=== PATIENT | male | born 1955 | race Caucasian/White ===

== ENCOUNTER 2018-09-11 06:58 | Day surgery (SDC) | payer OTHER ==
[~2018-09-11] VITALS: Ht 170.2 cm; Wt 113.3 kg
[~2018-09-11 06:58] MED LIST: ALBU90OI6 INH; ALBU90OI61 INH; AMIT25 PO; AMLO5; DIAZ5 PO; DULO60 PO; DULOXETINE HCL40 MG; ETOD400 PO; FLUSAL2505 INH; FOLI1 PO; GABA300 PO; HYDACE10B PO; HYDCHL25 PO; LISI20 PO; LISI5; LOVA40 PO; MEDICAL MARIJUANA; METF500C; Metformin HCl1000 MG PO; NAPR500 PO; Norco 5-325 Ta1 EACH PO; OMEP20ER PO; Omeprazole20 M1 PO; PRAM.125 PO; PRAM.5 PO; PROM25 PO; RANI150 PO; ROSUVASTATIN CA20 MG PO; SPIRIVA RESPIMAT4 G1; SPIRIVA RESPIMAT4 G1 INH; TAMS.4ER; TAMS.4ER PO; TRAM50 PO; TRAZ50
== END 2018-09-11 09:04 | disposition home or self-care (01) ==
LOC: ORSCSDS 06:58
PROVIDERS: Surgery
PROC: 0DBP8ZX Excision of Rectum, Via Natural or Artificial Opening Endoscopic, Diagnostic (ICD-10-PCS; principal; 2018-09-11 08:15)
PROC: 0DBL8ZX Excision of Transverse Colon, Via Natural or Artificial Opening Endoscopic, Diagnostic (ICD-10-PCS; principal; 2018-09-11 08:15)
PROC: 0DBK8ZX Excision of Ascending Colon, Via Natural or Artificial Opening Endoscopic, Diagnostic (ICD-10-PCS; principal; 2018-09-11 08:15)
DX: Z12.11 Encounter for screening for malignant neoplasm of colon (principal); D12.2 Benign neoplasm of ascending colon; D12.3 Benign neoplasm of transverse colon; K62.1 Rectal polyp; Z86.010 Personal history of colon polyps; J44.9 Chronic obstructive pulmonary disease, unspecified; G47.33 Obstructive sleep apnea (adult) (pediatric); F41.8 Other specified anxiety disorders; E11.9 Type 2 diabetes mellitus without complications; I10 Essential (primary) hypertension; F17.210 Nicotine dependence, cigarettes, uncomplicated; Z79.84 Long term (current) use of oral hypoglycemic drugs; Z79.899 Other long term (current) drug therapy
CPT/HCPCS: 82947; 88305; J0330; J1980; J2405; J7120

== ENCOUNTER → 2018-10-01 | Outpatient (CLI) | payer OTHER | END | disposition home or self-care (01) | LOC: LAB EV 12:57 → LAB SHORT 12:57 | DX: L03.317 Cellulitis of buttock (principal) | CPT/HCPCS: 87070; 87075; 87205 ==

== ENCOUNTER 2019-05-05 21:19 | Emergency (ER) | payer OTHER ==
[~2019-05-05] VITALS: Ht 170.2 cm; Wt 117.0 kg
[2019-05-05 22:01] LABS: BASOPHILS ABSOLUTE AUTO 0.02 K/mm3 (0.00-0.23); BASOPHILS PERCENT AUTO 0 % (0-2); EOSINOPHILS ABSOLUTE AUTO 0.96 K/mm3 (0.00-0.68); EOSINOPHILS PERCENT AUTO 8 % (0-6); Hematocrit 42.2 % (37.0-53.0); Hemoglobin 14.2 g/dL (13.5-17.5); IMMATURE GRAN ABSOLUTE AUTO 0.03 K/mm3 (0.00-0.10); IMMATURE GRAN PERCENT AUTO 0 % (0-1); LYMPHOCYTES ABSOLUTE AUTO 3.11 K/mm3 (0.84-5.20); LYMPHOCYTES PERCENT AUTO 27 % (21-46); MONOCYTES ABSOLUTE AUTO 1.38 K/mm3 (0.16-1.47); MONOCYTES PERCENT AUTO 12 % (4-13); Mean Corpuscular HGB 32.5 pg (26.0-34.0); Mean Corpuscular HGB Conc 33.6 g/dL (31.5-36.5); Mean Corpuscular Volume 97 fL (80-100); NEUTROPHILS ABSOLUTE AUTO 6.13 K/mm3 (1.96-9.15); NEUTROPHILS PERCENT AUTO 53 % (41-73); Platelet Count 319 K/mm3 (150-400); RDW Coefficient Variation 14.1 % (11.7-14.2); RDW Standard Deviation 49.4 fL (35.1-46.3); Red Blood Cell Count 4.37 M/mm3 (4.30-5.90); White Blood Cell Count 11.63 K/mm3 (4.00-11.30)
[2019-05-05 22:23] LABS: Alanine Aminotransfer (ALT/SGP 31 U/L (12-78); Albumin, Blood 3.6 g/dL (3.4-5.0); Alk Phos 87 U/L (50-136); Anion Gap 4 mmol/L (6-16); Aspartate Aminotrans (AST/SGOT 16 U/L (12-37); Bilirubin, Total 0.5 mg/dL (0.1-1.0); Blood Urea Nitrogen 15 mg/dL (8-24); CO2, Blood 31 mmol/L (21-32); Calcium, Blood 8.9 mg/dL (8.5-10.1); Chloride, Blood 103 mmol/L (98-108); Creatinine, Blood 0.88 mg/dL (0.60-1.20); Globulin, Blood 3.5 g/dL (2.2-4.0); Glomerular Filtration Rate >60 (60-); Glucose, Blood 183 mg/dL (70-99); Sodium, Blood 138 mmol/L (136-145); Total Protein, Blood 7.1 g/dL (6.4-8.2); Troponin I <0.015 ng/mL (0.000-0.040)
[2019-05-06 00:17] LABS: Influenza A Negative (NEGATIVE); Influenza B Negative (NEGATIVE)
[2019-05-06] MEDS ORDERED: Prednisone20 MG PO (00:37)
== END 2019-05-06 01:00 | disposition home or self-care (01) ==
LOC: ER 21:19
PROVIDERS: Emergency Medicine
DX: J44.9 Chronic obstructive pulmonary disease, unspecified (principal); F17.200 Nicotine dependence, unspecified, uncomplicated; Z79.899 Other long term (current) drug therapy; Z79.84 Long term (current) use of oral hypoglycemic drugs; G47.33 Obstructive sleep apnea (adult) (pediatric); R09.02 Hypoxemia; F17.210 Nicotine dependence, cigarettes, uncomplicated
CPT/HCPCS: 36415; 36600; 71046; 80053; 82803; 83605; 84484; 85025; 87040; 87804; 93005; 93010; 94640; 94644; 94726; 94729; 96374; 99284-25; J2930

== ENCOUNTER → 2020-05-25 | Outpatient (CLI) | payer OTHER ==
[~2020-05-25] MED LIST changes: +Prednisone20 MG PO
[2020-05-25 09:26] LABS: BASOPHILS ABSOLUTE AUTO 0.03 K/mm3 (0.00-0.23); BASOPHILS PERCENT AUTO 0 % (0-2); EOSINOPHILS ABSOLUTE AUTO 0.33 K/mm3 (0.00-0.68); EOSINOPHILS PERCENT AUTO 3 % (0-6); Hematocrit 34.8 % (37.0-53.0); Hemoglobin 11.7 g/dL (13.5-17.5); IMMATURE GRAN ABSOLUTE AUTO 0.04 K/mm3 (0.00-0.10); IMMATURE GRAN PERCENT AUTO 0 % (0-1); LYMPHOCYTES ABSOLUTE AUTO 2.05 K/mm3 (0.84-5.20); LYMPHOCYTES PERCENT AUTO 16 % (21-46); MONOCYTES ABSOLUTE AUTO 1.18 K/mm3 (0.16-1.47); MONOCYTES PERCENT AUTO 9 % (4-13); Mean Corpuscular HGB 31.6 pg (26.0-34.0); Mean Corpuscular HGB Conc 33.6 g/dL (31.5-36.5); Mean Corpuscular Volume 94 fL (80-100); Mean Platelet Volume 8.4 fL (9.1-12.4); NEUTROPHILS ABSOLUTE AUTO 9.08 K/mm3 (1.96-9.15); NEUTROPHILS PERCENT AUTO 72 % (41-73); Platelet Count 435 K/mm3 (150-400); RDW Coefficient Variation 16.4 % (11.7-14.2); RDW Standard Deviation 56.7 fL (35.1-46.3); White Blood Cell Count 12.71 K/mm3 (4.00-11.30)
[2020-05-25 09:38] LABS: Alanine Aminotransfer (ALT/SGP 25 U/L (12-78); Albumin, Blood 3.5 g/dL (3.4-5.0); Albumin/Globulin Ratio 0.8 (0.8-1.8); Alk Phos 83 U/L (40-126); Anion Gap 6 mmol/L (6-16); Aspartate Aminotrans (AST/SGOT 13 U/L (12-37); Bilirubin, Total 0.6 mg/dL (0.1-1.0); Blood Urea Nitrogen 23 mg/dL (8-24); Bun/Creatinine Ratio 20.9 (12.0-20.0); CO2, Blood 31 mmol/L (21-32); Calcium, Blood 9.6 mg/dL (8.5-10.1); Chloride, Blood 93 mmol/L (98-108); Globulin, Blood 4.3 g/dL (2.2-4.0); Glomerular Filtration Rate >60 (60-); Glucose, Blood 248 mg/dL (70-99); Potassium, Blood 4.8 mmol/L (3.5-5.5); Sodium, Blood 130 mmol/L (136-145); Total Protein, Blood 7.8 g/dL (6.4-8.2)
== END | disposition home or self-care (01) ==
LOC: LAB SHORT 09:22 → LAB EV 09:22
PROVIDERS: Chiropractor
DX: R60.0 Localized edema (principal)
CPT/HCPCS: 80053; 83036; 83880; 85025

== ENCOUNTER 2021-01-09 10:51 | Day surgery (SDC) | payer MEDICARE, OTHER ==
[~2021-01-09] VITALS: Ht 170.2 cm; Wt 115.5 kg
--- NOTE | 2021-01-09 13:03 | NUR ---
01/09/21 1303 Claudette Kerr LATE ENTRY: UPON ARRIVAL TO SDU PT PRESENTS WITH O2 SAT 84% ON RA. HE IS PLACED ON O2 2L VIA NC AND SATS INCREASE TO 88% HE IS GIVEN BREATHING TX ORDERED AND DR MURILLO IS NOTIFIED. DR MURILLO ARRIVES AND NO NEW ORDERS ARE GIVE. PT POST BREATHING TX LUNGS ARE CLEAR TO COUGH AND O2 SAT IS 92-94 ON RA. PT IS GIVEN AND INSENTIVE SPIROMETRY TO USE AND PREFORMS WELL. HE IS ENCOURAGED TO COUGH AND DEEP BREATH WELL.
== END 2021-01-09 13:14 | disposition home or self-care (01) ==
LOC: ORSCSDS 10:51
PROVIDERS: Internal Medicine Gastroenterology
PROC: 0DB58ZX Excision of Esophagus, Via Natural or Artificial Opening Endoscopic, Diagnostic (ICD-10-PCS; principal; 2021-01-09 12:30)
PROC: 0DB98ZX Excision of Duodenum, Via Natural or Artificial Opening Endoscopic, Diagnostic (ICD-10-PCS; principal; 2021-01-09 12:30)
DX: K22.70 Barrett's esophagus without dysplasia (principal); E11.9 Type 2 diabetes mellitus without complications; J44.9 Chronic obstructive pulmonary disease, unspecified; G47.30 Sleep apnea, unspecified; I10 Essential (primary) hypertension; K21.9 Gastro-esophageal reflux disease without esophagitis; Z87.891 Personal history of nicotine dependence; E66.9 Obesity, unspecified; Z68.41 Body mass index [BMI] 40.0-44.9, adult; Z79.84 Long term (current) use of oral hypoglycemic drugs; Z79.899 Other long term (current) drug therapy
CPT/HCPCS: 82947; 88305; J2704; J7120

== ENCOUNTER 2021-10-23 09:30 | Day surgery (SDC) | payer OTHER ==
[~2021-10-23] VITALS: Ht 170.2 cm; Wt 113.0 kg
[~2021-10-23 09:30] MED LIST changes: +ACET500 PO; +DICL75ER PO; +FURO20 PO; +JARDIANCE10 MG PO; +TERB250 PO; +TRELEGY ELLIPT1 EACH INH
[2021-10-23] MEDS ORDERED: AMOCLA875 PO (11:29)
[2021-10-23] MEDS ORDERED: Diflucan100 MG PO (11:30)
--- NOTE | 2021-10-23 12:05 | NUR ---
TOOK OVER PATIENT CARE AFTER REPORT WAS RECEIVED.
--- NOTE | 2021-10-23 13:09 | NUR ---
DR. HILL INTO TALK WITH PATIENT. INFORMED DR. HILL THAT PT WAS RECENTLY PLACED ON ANTIBIOTICS AND ANTIFUGAL 4 DAYS AGO. FREDY HILL EVALUTED PT AND INSTRUCTED PT THAT HE SURGERY NEEDED TO BE CANCELLED AND HIS INFECTION NEEDED TO BE RESOLVED FOR AT LEAST A FEW WEEKS BEFORE HIS SURGERY. PT IV DC'D INTACT AND PT TAKEN OUT OF DEPARTMENT VIA WC, HOME WITH HIS .
== END 2021-10-24 22:53 | disposition home or self-care (01) ==
LOC: ORSCMMR 09:30 → ORD 14:00 → ORSCMMR 10-24 22:53
DX: M17.12 Unilateral primary osteoarthritis, left knee (principal); Z53.9 Procedure and treatment not carried out, unspecified reason
CPT/HCPCS: 82947; A9270; J0171; J0690; J0735; J1885; J2250; J2704; J2795; J3010; J7120

== ENCOUNTER 2021-11-21 09:19 | Day surgery (SDC) | payer OTHER ==
[~2021-11-21] VITALS: Ht 170.2 cm; Wt 118.1 kg
[~2021-11-21 09:19] MED LIST changes: +AMOCLA875 PO; +Diflucan100 MG PO
[2021-11-21] MEDS ORDERED: Lovastatin20 MG PO (10:01)
--- NOTE | 2021-11-21 10:05 | NUR ---
11/21/21 Goldie5 Jamin Melendez CALL LIGHT WITHIN REACH
== END 2021-11-21 11:23 | disposition home or self-care (01) ==
LOC: ORSCSDS 09:19
PROVIDERS: Surgery
PROC: 0DBK8ZX Excision of Ascending Colon, Via Natural or Artificial Opening Endoscopic, Diagnostic (ICD-10-PCS; principal; 2021-11-21 10:30)
DX: Z12.11 Encounter for screening for malignant neoplasm of colon (principal); Z86.010 Personal history of colon polyps; D12.2 Benign neoplasm of ascending colon; I10 Essential (primary) hypertension; G47.33 Obstructive sleep apnea (adult) (pediatric); E11.9 Type 2 diabetes mellitus without complications; E78.5 Hyperlipidemia, unspecified; K21.9 Gastro-esophageal reflux disease without esophagitis; J44.9 Chronic obstructive pulmonary disease, unspecified; E66.01 Morbid (severe) obesity due to excess calories; Z68.41 Body mass index [BMI] 40.0-44.9, adult; Z79.84 Long term (current) use of oral hypoglycemic drugs; Z79.899 Other long term (current) drug therapy
CPT/HCPCS: 82947; 88305; J2704; J7120

== ENCOUNTER 2022-07-18 18:36 | Inpatient (IN) | payer OTHER ==
[~2022-07-18] VITALS: Ht 170.2 cm; Wt 112.0 kg
[~2022-07-18 18:36] MED LIST changes: +Lovastatin20 MG PO
[2022-07-18 19:04] LABS: BASOPHILS ABSOLUTE AUTO 0.04 K/mm3 (0.00-0.23); BASOPHILS PERCENT AUTO 0 % (0-2); EOSINOPHILS ABSOLUTE AUTO 0.22 K/mm3 (0.00-0.68); EOSINOPHILS PERCENT AUTO 1 % (0-6); Hematocrit 38.1 % (37.0-53.0); Hemoglobin 12.9 g/dL (13.5-17.5); IMMATURE GRAN ABSOLUTE AUTO 0.11 K/mm3 (0.00-0.10); IMMATURE GRAN PERCENT AUTO 1 % (0-1); LYMPHOCYTES ABSOLUTE AUTO 1.78 K/mm3 (0.84-5.20); LYMPHOCYTES PERCENT AUTO 9 % (21-46); MONOCYTES ABSOLUTE AUTO 1.79 K/mm3 (0.16-1.47); MONOCYTES PERCENT AUTO 9 % (4-13); Mean Corpuscular HGB 31.1 pg (26.0-34.0); Mean Corpuscular HGB Conc 33.9 g/dL (31.5-36.5); Mean Corpuscular Volume 92 fL (80-100); Mean Platelet Volume 8.8 fL (9.1-12.4); NEUTROPHILS ABSOLUTE AUTO 16.72 K/mm3 (1.96-9.15); NEUTROPHILS PERCENT AUTO 81 % (41-73); Platelet Count 312 K/mm3 (150-400); RDW Standard Deviation 50.3 fL (35.1-46.3); Red Blood Cell Count 4.15 M/mm3 (4.30-5.90); White Blood Cell Count 20.66 K/mm3 (4.00-11.30)
[2022-07-18 19:29] LABS: Albumin, Blood 2.6 g/dL (3.4-5.0); Albumin/Globulin Ratio 0.6 (0.8-1.8); Bilirubin, Total 0.6 mg/dL (0.1-1.0); Bun/Creatinine Ratio 13.4 (12.0-20.0); Calcium, Blood 8.2 mg/dL (8.5-10.1); Creatinine, Blood 0.6 mg/dL (0.60-1.20); Globulin, Blood 4.1 g/dL (2.2-4.0); Potassium, Blood 4.9 mmol/L (3.5-5.5); Thyroid Stimulating Hormone 0.702 uIU/mL (0.360-4.800); Total Protein, Blood 6.7 g/dL (6.4-8.2)
[2022-07-18 19:33] LABS: Base Excess Venous 8.3 mmol/L; Bicarbonate Venous 31.4 mmol/L (24.0-30.0); PCO2 Venous 40.5 mmHg (38-42)
[2022-07-18 19:50] LABS: Influenza A, PCR NEGATIVE (NEGATIVE); Influenza B, PCR NEGATIVE (NEGATIVE); Resp Syncytial Virus, PCR NEGATIVE (NEGATIVE); SARS-Cov-2 (COVID-19) PCR, MMC NEGATIVE (NEGATIVE)
[2022-07-18 21:27] LABS: Source, Urine Clean Catch
[2022-07-18 21:40] LABS: Appearance, Urine Clear (Clear); Bilirubin, Urine Neg (Neg); Blood, Urine Neg (Neg); Color, Urine Yellow (P-Yellow); Glucose Qualitative, Urine 4+ (Neg); Ketones, Urine Neg (Neg); Leukocyte Esterase, Urine 1+ (Neg); Nitrite, Urine Neg (Neg); Protein, Urine 1+ (Neg); Specific Gravity, Urine 1.015 (1.003-1.022); Urobilinogen, Urine NORM (Normal)
[2022-07-18 21:53] LABS: Bacteria Mod /hpf; Red Blood Cells, Urine 0-2 /hpf (0-2); Squamous Epithelial Cells Mod /hpf (Few)
[2022-07-19 00:05] LABS: Anti-Xa UFH, PHA Monitoring <0.10 IU/mL; International Normalized Ratio 1.07; Prothrombin Time Results 11.2 Sec (9.7-11.5)
--- NOTE | 2022-07-19 04:49 | NUR ---
SHIFT SUMMARY PT ADMITTED AT 0035 FROM ED- PT A&O X 4- STARTED IV RIGHT FA- STARTED HEPARIN DRIP PER ORDER- PT ON 3L VIA NC SKIN CHECK REVEALED MULTIPLE BOILS IN SCROTUM AREA THAT APPEARED INFECTED/INFLAMMED- PER PT HE DIDN'T REMEMBER IN ED TO LET THEM KNOW THAT HE HAS AN APPOINTMENT WITH TODAY FOR TREATMENT- PT REPORTS HAVING A HISTORY OF BOILS- PT USED CALL LIGHT APPROPRIATELY T/O NIGHT- PT SAT UP AND ATE A SNACK WITHOUT C/O NAUSEA- BED LOW POSITION, CALL LIGHT WITHIN REACH, BED ALARM IN PLACE
[2022-07-19] MEDS ORDERED: JARDIANCE10 MG PO (07:00)
[2022-07-19] MEDS ORDERED: Trelegy Ellipta 100- INH (07:01)
[2022-07-19] MEDS ORDERED: METFORMIN HCL500 M3 PO (07:03)
[2022-07-19] MEDS ORDERED: KLOR-CON 1010 ME1 PO (07:04)
[2022-07-19] MEDS ORDERED: ROSU10TA PO (07:05)
[2022-07-19] MEDS ORDERED: RYBELSUS14 MG PO (07:07)
[2022-07-19] MEDS ORDERED: Viagra100 MG PO (07:08)
[2022-07-19 07:16] LABS: BASOPHILS ABSOLUTE AUTO 0.03 K/mm3 (0.00-0.23); BASOPHILS PERCENT AUTO 0 % (0-2); EOSINOPHILS PERCENT AUTO 2 % (0-6); Hematocrit 37.8 % (37.0-53.0); Hemoglobin 12.3 g/dL (13.5-17.5); IMMATURE GRAN PERCENT AUTO 1 % (0-1); LYMPHOCYTES ABSOLUTE AUTO 1.75 K/mm3 (0.84-5.20); LYMPHOCYTES PERCENT AUTO 10 % (21-46); MONOCYTES ABSOLUTE AUTO 1.39 K/mm3 (0.16-1.47); MONOCYTES PERCENT AUTO 8 % (4-13); Mean Corpuscular HGB 30.9 pg (26.0-34.0); Mean Corpuscular HGB Conc 32.5 g/dL (31.5-36.5); Mean Corpuscular Volume 95 fL (80-100); Mean Platelet Volume 8.9 fL (9.1-12.4); NEUTROPHILS ABSOLUTE AUTO 13.27 K/mm3 (1.96-9.15); NEUTROPHILS PERCENT AUTO 78 % (41-73); Platelet Count 314 K/mm3 (150-400); RDW Coefficient Variation 15.7 % (11.7-14.2); RDW Standard Deviation 54.7 fL (35.1-46.3); Red Blood Cell Count 3.98 M/mm3 (4.30-5.90); White Blood Cell Count 16.94 K/mm3 (4.00-11.30)
[2022-07-19 07:45] LABS: Albumin, Blood 2.6 g/dL (3.4-5.0); Albumin/Globulin Ratio 0.6 (0.8-1.8); Bilirubin, Total 0.8 mg/dL (0.1-1.0); Calcium, Blood 8.2 mg/dL (8.5-10.1); Creatinine, Blood 0.71 mg/dL (0.60-1.20); Globulin, Blood 4.2 g/dL (2.2-4.0); Potassium, Blood 4.5 mmol/L (3.5-5.5); Total Protein, Blood 6.8 g/dL (6.4-8.2)
--- NOTE | 2022-07-19 08:00 | NUR ---
pt laying in bed this am, a/ox3, a bit impulsive, will get himself to the bathroom without being cognisant of his lines, is coopertive with care, is directable, lungs are dim, course t/o, on 3 liters currently, has a wet productive cough of yellow sputum, hrr, currently in sr per monitor, see strip, 4+ edema noted to b/l le, cap refill <3sec, vs stable, afebrile, iv x2 to r and l fa's, heperin gtt infusing as ordered, voids clear marco a urine via urinal, skin has an abcess to perineal area that has a white spot that has some drainage, reports that he is constipated, gena calabrese, call light in reach.
--- NOTE | 2022-07-19 18:00 | NUR ---
pt has been diaphoretic throughout the day, low grade temp, v.s. stable, good appetite, has slept when left undisturbed, surgical consult was called in by Dr. Boo for ct results, will keep him npo at this point, did already eat dinner. no further changes, call light in reach.
--- NOTE | 2022-07-20 03:59 | NUR ---
SHIFT SUMMARY NO OVERNIGHT EVENTS IN PT CONDITION. PT NPO FOR POSSIBLE SURGERY TODAY, PT WAITING FOR SURGEON TO DISCUSS OPTIONS WITH HIM. HEPARIN GTT DISCONTINUED. CONTINUES IV ABX FOR SCROTUM WOUND/ULCER THAT IS OPEN TO AIR. BLE SWOLLEN, +3 EDEMA. ON TELE RUNNING NSR/TACH HR 95-110 WITH TRIGEMENY.PT ORIENTED X3/4, FORGETFUL, BED ALARM ON. REMAINS ON 3LO2, HAS NONPRODUCTIVE COUGH. FREQUENT ROUNDING TO ASSIST WITH PT NEEDS.
[2022-07-20 06:31] LABS: BASOPHILS ABSOLUTE AUTO 0.03 K/mm3 (0.00-0.23); BASOPHILS PERCENT AUTO 0 % (0-2); EOSINOPHILS PERCENT AUTO 3 % (0-6); Hematocrit 34.7 % (37.0-53.0); Hemoglobin 11.5 g/dL (13.5-17.5); IMMATURE GRAN ABSOLUTE AUTO 0.06 K/mm3 (0.00-0.10); IMMATURE GRAN PERCENT AUTO 0 % (0-1); LYMPHOCYTES ABSOLUTE AUTO 1.45 K/mm3 (0.84-5.20); LYMPHOCYTES PERCENT AUTO 10 % (21-46); MONOCYTES ABSOLUTE AUTO 1.23 K/mm3 (0.16-1.47); MONOCYTES PERCENT AUTO 9 % (4-13); Mean Corpuscular HGB 30.8 pg (26.0-34.0); Mean Corpuscular HGB Conc 33.1 g/dL (31.5-36.5); Mean Corpuscular Volume 93 fL (80-100); Mean Platelet Volume 8.5 fL (9.1-12.4); NEUTROPHILS ABSOLUTE AUTO 10.83 K/mm3 (1.96-9.15); NEUTROPHILS PERCENT AUTO 77 % (41-73); Platelet Count 320 K/mm3 (150-400); RDW Coefficient Variation 15.3 % (11.7-14.2); RDW Standard Deviation 52.3 fL (35.1-46.3); Red Blood Cell Count 3.73 M/mm3 (4.30-5.90)
[2022-07-20 07:43] LABS: Albumin, Blood 2.4 g/dL (3.4-5.0); Albumin/Globulin Ratio 0.6 (0.8-1.8); Bilirubin, Total 0.7 mg/dL (0.1-1.0); Bun/Creatinine Ratio 17.9 (12.0-20.0); C-REACTIVE PROTEIN, EXT RANGE 16.3 mg/dL (0.000-0.300); Calcium, Blood 8.3 mg/dL (8.5-10.1); Creatinine, Blood 0.61 mg/dL (0.60-1.20); Potassium, Blood 3.9 mmol/L (3.5-5.5); Total Protein, Blood 6.4 g/dL (6.4-8.2)
--- NOTE | 2022-07-20 14:10 | NUR ---
ASSUMED CARE PT IS ALERT NRB ON AT 10 L I REMOVED IT AND PUT 3 L N/C AFTER PT HAD GOOD COUGH . AFTERA COUPLE MINUTES BIOX DROPS TO 90% SO I PUT NRB AT 10 L O2 BACK ON PT DENIES PAIN OR NAUSEA GOOD COUGH WHEN ASKED IT IS MOIST COUNDING NONPRODUCTIVE
[2022-07-20] MEDS ORDERED: FURO80 (18:14)
[2022-07-20] MEDS ORDERED: SULTRIDS PO (18:14)
--- NOTE | 2022-07-20 19:44 | NUR ---
PT AWAKE AT START OF SHIFT. NPO AFTER MN, WAITING FOR SX. DR BELL IN TO SEE PT AND DISCUSS PLAN OF CARE. PT AGREEABLE AT THE TIME. DR HERNANDEZ NOTIFIED FOR APPROX TIME AND REPORTED 1300. DAY SX HERE TO P/U PT AND DISCUSS PROCEDURE. IV ABX INFUSING PT LEFT D/T PT OCCLUDING IV SITE FREQUENTLY AND DELAYING ABX SCHEDULE. PT LATER RETURNED TO , TOLERATING PROCEDURE WELL. VSS; SEE CHART. PT LATER THIS EVENING BECAME VERY AGITATED AND UPSET, TEARING OFF TELE MX AND YELLING AT [employer] SAL[employer] REPRESENTATIVE BECAUSE HE WASN'T D/C'D. PT WANTING TO GO AMA AND STATED THAT HE WASN'T STAYING ANY LONGER. DR BELL NOTIFIED AND UPDATED ON PT STATUS. NEW ORDERS PLACED. DR BELL PLACING D/C ORDERS AGAINST MEDICAL ADVICE IN ORDER FOR PT TO HAVE OUTPT ABX. PT WILLING TO WAIT FOR D/C ORDERS AND FOR MEDS TO BE FAXED TO PHARMACY. STAT HOME O2 EVAL ORDERED AND DONE. PT UNWILLING TO WAIT FOR HOME O2 ORDER. D/C ORDERS AND INSTRUCTIONS REVIEWED WITH PT; VERBALIZED UNDERSTANDING. PT'S SON HERE TO TICKET BROKER PT. BELONGINGS AND INSTRUCTIONS WENT WITH PT.
== END 2022-07-20 18:57 | disposition left against medical advice (07) | DRG 871 ==
LOC: ER 18:36 → MEDS 23:53
PROVIDERS: Emergency Medicine; Family Medicine; ADMIT Internal Medicine
PROC: 5A2204Z Restoration of Cardiac Rhythm, Single (ICD-10-PCS; principal; 2022-07-18)
PROC: 3E03329 Introduction of Other Anti-infective into Peripheral Vein, Percutaneous Approach (ICD-10-PCS; 2022-07-18)
PROC: 0HB9XZZ Excision of Perineum Skin, External Approach (ICD-10-PCS; 2022-07-20)
DX: A41.4 Sepsis due to anaerobes (principal); I50.23 Acute on chronic systolic (congestive) heart failure; J96.01 Acute respiratory failure with hypoxia; K61.0 Anal abscess; E87.1 Hypo-osmolality and hyponatremia; I48.91 Unspecified atrial fibrillation; E11.628 Type 2 diabetes mellitus with other skin complications; I11.0 Hypertensive heart disease with heart failure; I44.30 Unspecified atrioventricular block; E11.51 Type 2 diabetes mellitus with diabetic peripheral angiopathy without gangrene; J43.9 Emphysema, unspecified; F32.A Depression, unspecified; F41.9 Anxiety disorder, unspecified; G47.30 Sleep apnea, unspecified; Z96.0 Presence of urogenital implants; Z20.822 Contact with and (suspected) exposure to COVID-19; F12.10 Cannabis abuse, uncomplicated; Z88.8 Allergy status to other drugs, medicaments and biological substances; Z79.899 Other long term (current) drug therapy; Z98.890 Other specified postprocedural states; Z79.01 Long term (current) use of anticoagulants; Z98.1 Arthrodesis status; Z87.891 Personal history of nicotine dependence; Z79.811 Long term (current) use of aromatase inhibitors; Z79.84 Long term (current) use of oral hypoglycemic drugs; Z79.52 Long term (current) use of systemic steroids
CPT/HCPCS: 0241U; 36415; 71045; 72193; 76882; 80053; 81001; 82803; 82947; 83036; 83605; 83880; 84443; 84484; 85025; 85520; 85610; 85730; 86140; 87040; 87070; 87075; 87076; 87185; 87205; 92960; 93005; 93010; 93306; 94640; 94664; 94760; 94761; 96365-59; 96366-59; 96367-59; 96375-59; 96376-59; 99291-25; A9270; J0696; J1100; J1644; J1815; J2250; J2405; J2704; J2795; J3010; J3370; J7030; J7050; J7120; Q9967

== ENCOUNTER → 2023-06-25 | Outpatient (CLI) | payer OTHER ==
[~2023-06-25] MED LIST changes: +FURO80; +KLOR-CON 1010 ME1 PO; +METFORMIN HCL500 M3 PO; +ROSU10TA PO; +RYBELSUS14 MG PO; +SULTRIDS PO; +Trelegy Ellipta 100- INH; +Viagra100 MG PO
[2023-06-28 13:56] LABS: 3-OH-COTININE, URN, QUANT <50 ng/mL; ANABASINE, URN, QUANT <5 ng/mL; COTININE, URN, QUANT <15 ng/mL; NICOTINE, URN, QUANT <15 ng/mL
== END ==
LOC: LAB 12:28 → LAB SHORT 12:28
PROVIDERS: Orthopaedic Surgery
DX: Z01.818 Encounter for other preprocedural examination (principal); F17.200 Nicotine dependence, unspecified, uncomplicated
CPT/HCPCS: G0480

== ENCOUNTER 2024-01-27 12:18 | Day surgery (SDC) | payer OTHER ==
[~2024-01-27] VITALS: Ht 170.2 cm; Wt 110.0 kg
[2024-01-27] VITALS (19 sets, daily range): BP systolic 107–155; BP diastolic 66–99
[~2024-01-27 12:18] MED LIST changes: +ALBU90OI INH; +Acetaminophen 500 MG Tab PO SCH; +Chantix1 MG PO; +Chlorhexidine Mouth Care 15 ML UDC MT SCH; +Crestor40 MG PO; +FLUT1DIS5 INH; -FURO80; +FURO80 PO; +Lactated Ringer's 1,000 ML IV SCH; +OxyCODONE HCL 10 MG TABCR PO SCH; -ROSU10TA PO; +RYBELSUS7 MG PO; +Ropivacaine 0.5% HCl/Pf 123.125 MG,EPINEPHrine HCL 0.25 MG,Ketorolac Tromethamine 15 MG... INFIL SCH
[2024-01-27] MEDS ORDERED: Bisacodyl 10 MG Supp PR PRN (12:55)
[2024-01-27] MEDS ORDERED: DiphenhydrAMINE HCL 25 MG Cap PO PRN (12:55)
[2024-01-27] MEDS ORDERED: CeFAZolin Sodium 2,000 MG in NS 100 ML IV PRN (12:55)
[2024-01-27] MEDS ORDERED: Mirapex0.5 MG PO (12:56)
[2024-01-27] MEDS ORDERED: OxyCODONE HCL 5 MG TAB PO PRN ×2 (13:00→13:05)
[2024-01-27] MEDS ORDERED: Lactated Ringer's 1,000 ML IV SCH (13:00)
[2024-01-27] MEDS ORDERED: HYDROmorphone HCl/Pf 1MG SYR IV PRN ×2 (13:00→16:45)
[2024-01-27] MEDS ORDERED: Metoclopramide HCl 5MG / ML 2ML Vial IV PRN (13:00)
[2024-01-27] MEDS ORDERED: Magnesium Hydroxide Conc 10 ML UDC PO PRN (13:00)
[2024-01-27] MEDS ORDERED: Ondansetron HCl 2 MG / ML 2ML Vial IV PRN (13:05)
[2024-01-27] MEDS ORDERED: Albuterol HFA200 ACT/6.7 GM INH INH PRN (13:15)
[2024-01-27] MEDS ORDERED: Mometasone/Formoterol MDI 200/5 mcg 13 GM INH SCH (13:15)
[2024-01-27] MEDS ORDERED: Promethazine HCl 25 MG Tab PO PRN (13:30)
[2024-01-27] MEDS ORDERED: SEMGLEE (Y100 UNIT/2 SC (13:54)
--- NOTE | 2024-01-27 13:57 | NUR ---
PATIENT LEFT DENTURES AT HOME. EARING REMOVED FROM LEFT EAR WITH EASE AND GIVEN TO PATIENT'S SPOUSE FOR SAFE KEEPING. KNEE HIGH RED HOSE AND CALF PAS APPLIED TO RLE.
--- NOTE | 2024-01-27 13:59 | NUR ---
REPORT GIVEN TO KATIE WANG RN.
[2024-01-27] MEDS ORDERED: Pramipexole DI-HCL 0.25 MG Tab PO SCH (14:00)
[2024-01-27] MEDS ORDERED: propofoL 60 ML IV ONE (15:36)
[2024-01-27] MEDS ORDERED: FentaNYL Citrate 50 MCG/ML 2 ML Injection ONE ×2 (15:54→17:54)
[2024-01-27] MEDS ORDERED: Acetaminophen 500 MG Tab PO SCH (16:00)
[2024-01-27] MEDS ORDERED: Dexamethasone Sod Phos 10 MG/ML 1ML VIAL ONE (16:01)
[2024-01-27] MEDS ORDERED: Rocuronium Bromide 10 MG/ML 5ML Injection IV ONE (16:01)
[2024-01-27] MEDS ORDERED: Phenylephrine HCl 100 MCG/ML-NS 10MLSYR (1MG/10ML) ONE (16:03)
--- NOTE | 2024-01-27 16:21 | NUR ---
01/27/24 1621 Nany Brar SPINAL NERVE BLOCK ATTEMPTED BY DR. DONIS UPON ENTRY TO OR. UNABLE TO PLACE SPINAL, CONVERTED TO GENERAL.
[2024-01-27] MEDS ORDERED: HYDROmorphone HCl/Pf 1MG SYR ONE (16:27)
[2024-01-27] MEDS ORDERED: Ketorolac Tromethamine 30mg Vial ONE (16:30)
[2024-01-27] MEDS ORDERED: Ondansetron HCl 2 MG / ML 2ML Vial ONE (16:30)
[2024-01-27] MEDS ORDERED: Sugammadex Sodium 200 MG/2ML SDV (100 MG/ML) ONE (16:31)
[2024-01-27] MEDS ORDERED: Albuterol 2.5 MG/3 ML VIAL INH PRN (16:40)
[2024-01-27] MEDS ORDERED: FentaNYL Citrate 50 MCG/ML 2 ML Injection IV PRN ×3 (16:40)
[2024-01-27] MEDS ORDERED: Albuterol 2.5 MG/3 ML VIAL ONE (17:55)
[2024-01-27] MEDS ORDERED: Ketorolac Tromethamine 15mg Vial IV SCH (18:00)
--- NOTE | 2024-01-27 18:59 | NUR ---
ARRIVAL S/P KA PT ARRIVED TO UNIT FROM PACU ON BED AT 1845. PT REPORTS NO PAIN AT THIS TIME. DENIES ANY NUMBNESS OR TINGLING. PT ON 4L NASAL CANULA. BREATHING OUT OF HIS MOUTH PRIMARILY. SATURATIONS 90-94%, ENCOURAGING DEEP BREATHING. PT TOLERATING JELLO AND WATER. DENIES NAUSEA. POLAR YANNA IN PLACE. FAMILY MEMBER AT BEDSIDE. CALL LIGHT PROVIDED AND EDUCATED ON USE.
[2024-01-27] MEDS ORDERED: Furosemide 40 MG Tab PO SCH (21:00)
[2024-01-27] MEDS ORDERED: Docusate Sodium 100 MG Cap PO SCH (21:00)
[2024-01-28] MEDS ORDERED: CeFAZolin Sodium 2,000 MG in NS 100 ML IV SCH
[2024-01-28 02:11] VITALS: BP 132/85
--- NOTE | 2024-01-28 04:59 | NUR ---
SHIFT SUMMARY KUSUM WAS ALERT AND ORIENTED ON ASSESSMENT AND WITH FAMILY. AQUACEL DRESSING TO SURGICAL SITE WAS C/D/I. GENERAL ANESTHESIA WORE OFF AND PT ABLE TO AMBULATE AND VOID W/O ISSUE. PAIN WELL UNDER CONTROL NO ACUTE EVENTS TONIGHT.
[2024-01-28 05:00] LABS: BASOPHILS ABSOLUTE AUTO 0.01 K/mm3 (0.00-0.23); BASOPHILS PERCENT AUTO 0 % (0-2); EOSINOPHILS PERCENT AUTO 0 % (0-6); Hematocrit 40.5 % (37.0-53.0); Hemoglobin 13.5 g/dL (13.5-17.5); IMMATURE GRAN ABSOLUTE AUTO 0.05 K/mm3 (0.00-0.10); IMMATURE GRAN PERCENT AUTO 0 % (0-1); LYMPHOCYTES ABSOLUTE AUTO 0.86 K/mm3 (0.84-5.20); LYMPHOCYTES PERCENT AUTO 6 % (21-46); MONOCYTES ABSOLUTE AUTO 1.01 K/mm3 (0.16-1.47); MONOCYTES PERCENT AUTO 7 % (4-13); Mean Corpuscular HGB 30.4 pg (26.0-34.0); Mean Corpuscular HGB Conc 33.3 g/dL (31.5-36.5); Mean Corpuscular Volume 91 fL (80-100); Mean Platelet Volume 9.1 fL (9.1-12.4); NEUTROPHILS PERCENT AUTO 86 % (41-73); Platelet Count 275 K/mm3 (150-400); RDW Coefficient Variation 14.7 % (11.7-14.2); Red Blood Cell Count 4.44 M/mm3 (4.30-5.90); White Blood Cell Count 13.83 K/mm3 (4.00-11.30)
[2024-01-28 05:56] LABS: Bun/Creatinine Ratio 19.7 (12.0-20.0); Calcium, Blood 8.3 mg/dL (8.5-10.1); Creatinine, Blood 0.91 mg/dL (0.60-1.20); Magnesium, Blood 1.6 mg/dL (1.6-2.4); Potassium, Blood 4.7 mmol/L (3.5-5.5)
[2024-01-28 07:39] VITALS: BP 112/64
[2024-01-28] MEDS ORDERED: MetFORMIN HCl 500 mg PO SCH (08:00)
[2024-01-28] MEDS ORDERED: Aspirin 81 MG Chew PO SCH (09:00)
[2024-01-28] MEDS ORDERED: Varenicline Tartrate 1 MG Tablet PO SCH (09:00)
[2024-01-28] MEDS ORDERED: Rosuvastatin Calcium 10 MG Tab PO SCH (09:00)
[2024-01-28] MEDS ORDERED: Misc. Tablet PO SCH (09:00)
[2024-01-28] MEDS ORDERED: Pramipexole DI-HCL 1 Mg Tab PO SCH (09:00)
--- NOTE | 2024-01-28 11:10 | NUR ---
DISCHARGE SUMMARY POD1 L TKA, A/OX4, VSS, TOLERATING PO, VOIDING WELL, AMBULATING WITH MINIMAL SBA, AQUACELL TO L KNEE AND L ANTERIOR SALAZAR C/D/I, PATEINT PROVIDED WITH ADDITIONAL DRESSINGS FOR HOME DRESSING CHANGES, IV ACCESS REMOVED, LS CLEAR T/O. DISCUSSED DISCHARGE INSTRUCTIONS WITH HIM INCLUDING HOME CARE, MEDICATIONS, AND FOLLOW UP APPOINTMENTS, NO QUESTIONS AT THIS TIME, PT WAITING FOR HIS WHO IS ON HER WAY IN TO TAKE HIM HOME.
--- NOTE | 2024-01-28 11:35 | NUR ---
DISCHARGE ADDENDUM PT ESCORTED OUT VIA WC TO PRIVATE AUT[employer] TO GO HOME WITH HIS .
== END 2024-01-28 11:36 | disposition home or self-care (01) ==
LOC: ORSCMMR 12:18 → ORD 13:30 → SURS 18:54 → ORSCMMR 01-28 11:36
PROVIDERS: Orthopaedic Surgery
DX: M17.12 Unilateral primary osteoarthritis, left knee (principal); J44.9 Chronic obstructive pulmonary disease, unspecified; E78.5 Hyperlipidemia, unspecified; I10 Essential (primary) hypertension; G47.33 Obstructive sleep apnea (adult) (pediatric); E11.9 Type 2 diabetes mellitus without complications; F17.210 Nicotine dependence, cigarettes, uncomplicated; K21.9 Gastro-esophageal reflux disease without esophagitis; E66.01 Morbid (severe) obesity due to excess calories; Z68.38 Body mass index [BMI] 38.0-38.9, adult; Z79.84 Long term (current) use of oral hypoglycemic drugs; Z79.899 Other long term (current) drug therapy
CPT/HCPCS: 27447; 0055T; 36415; 73560-LT; 80048; 82947; 83735; 85025; 97110; 97116; 97162; A9270; C1713; C1776; J0171; J0690; J0735; J1100; J1170; J1885; J2371; J2405; J2704; J2795; J3010; J7120